=== PATIENT | female | born 1995 | race Caucasian/White ===

== ENCOUNTER 2025-04-08 11:04 | Emergency (ER) | payer OTHER ==
[~2025-04-08] VITALS: Ht 160 cm; Wt 85.8 kg
[2025-04-08] MEDS ORDERED: PRENATAL TABLE1 EACH PO (11:15)
[2025-04-08 11:42] LABS: BASOPHILS 0.4 % (0.1-1.2); EOSINOPHILS 0.4 % (0.7-5.8); LYMPHOCYTES 28.4 % (19.3-51.7); MCH 30.9 PG (25.6-32.2); MCHC 35.0 g/dL (32.2-35.5); MCV 88.3 fL (79.4-94.8); MONOCYTES 6.2 % (4.7-12.5); NEUTROPHILS 64.5 % (34.0-71.1); RBC 4.18 M/uL (3.93-5.22)
[2025-04-08 12:02] LABS: ABO O; RH POSITIVE
[2025-04-08 12:14] LABS: BLOOD/HGB, URINE LARGE (Negative); KETONE, URINE NEGATIVE (Negative); LEUK ESTERASE, URINE NEGATIVE (negative); NITRITE, URINE NEGATIVE (negative)
[2025-04-08 12:19] LABS: ALT (SGPT) 19.0 U/L (14-59); AST (SGOT) 13.0 U/L (15-37); GLOMERULAR FILTRATION RATE,EST 119.0 mL/min (>60); PROTEIN, TOTAL 6.8 g/dL (6.4-8.2); UREA NITROGEN 10.0 mg/dL (7-18)
[2025-04-08 12:23] LABS: EPITHELIAL CELLS, URINE SQUAMOUS 2+ /lpf (0-1+)
[2025-04-08 12:24] LABS: BACTERIA, URINE NONE SEEN /hpf (negative); CASTS, URINE NONE SEEN \\lpf; CRYSTALS, URINE NONE SEEN (0-1+); REFLEX CULTURE, URINE No (No)
[2025-04-08 12:58] VITALS: BP 116/72
== END 2025-04-08 12:58 | disposition home or self-care (01) ==
LOC: ED 11:04
PROVIDERS: Emergency Medicine
DX: O20.0 Threatened abortion (principal); Z79.899 Other long term (current) drug therapy; Z3A.13 13 weeks gestation of pregnancy
CPT/HCPCS: 36415; 76801; 80053; 81001; 84702; 85025; 86900; 86901; 99284-25